=== PATIENT | female | born 1980 | race Caucasian/White ===

== ENCOUNTER → 2021-03-29 | Day surgery (SDC) | payer OTHER ==
[~2021-03-29] MED LIST: ABILIFY MYCITE5 MG PO; BACTRIM DS TAB1 EACH PO; BOTOX100 UNIT IM; COLACE100 MG PO; DEPO-PROVE150 MG/11 IM; FISH OIL 1,0001 EAC9 PO; HIGH POTENCY I134 MG PO; KEFLEX250 MG PO; LUNESTA2 MG PO; LYRICA100 MG PO; MELATONIN3 MG PO; MULTI VITAMIN1 EACH PO; NORCO5 PO; OXYBUTYNIN 5 MG5 M2 PO; PRILOSEC OTC20 MG PO; PRISTIQ100 MG PO; REQUIP 1 MG TABL1 M1 PO; SINGULAIR 10 MG10 MG PO; TOPROL XL50 MG PO; UBRELVY100 MG PO; VISTARIL50 MG PO; VITAMIN C250 MG PO; VITAMIN D350 MCG PO; ZANAFLEX2 M1 PO; [UNRECOGNIZED DRUG - OTHER] IM
[2021-03-29 06:53] LABS: HEMATOCRIT 41.3 % (37.0-47.0); MCH 30.3 pg (26.0-34.0); MCHC 33.9 g/dL (28.0-37.0); MCV 89.3 fL (80.0-100.0); MPV 7.2 fl. (7.2-11.1); RBC 4.62 mil/uL (4.20-5.00); RDW-CV 14.4 % (10.5-14.5); WBC 5.4 thou/uL (4.0-11.0)
[2021-03-29 07:03] LABS: CALCIUM 9.3 mg/dL (8.5-10.1); CREATININE 0.9 mg/dL (0.6-1.3)
--- NOTE | 2021-03-29 09:54 | EKG ---
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
--- NOTE | 2021-04-04 12:06 | PATH ---
[address] [address] PATHOLOGY RPT PROCEDURE Name: SENAIT CASPER Room: [facility].#: [id number] Admission: 03/29/21 Date of : 80 Discharge: Report #: [id number] Path Case #: [id number] [facility] Accession Number: [id number] . 01 Material submitted: . elbow - LEFT ELBOW MASS. Modifiers: left . 02 Diagnosis: Left elbow mass: - Benign skin and dense fibrous connective tissue with fibrosis, dystrophic calcification and attached benign bone. ([place]:[facility]; 03/31/2021) [facility] 03/31/2021 1142 Local . 02 Electronically signed: . Last Mai MD, Pathologist NPI- [id number] . 01 Gross description: . The specimen is received in formalin, labeled "Senait Casper, left elbow mass". Received are multiple segments of white-simms tissue with attached possible skin measuring 3.2 x 1.0 x 0.3 cm in aggregate dimensions. The specimen is submitted entirely in cassette A1. ([facility]; 03/30/2021) QAC/QAC 03/30/2021 0915 Local . 02 Pathologist provided ICD-10: M79.89 . 02 CPT . 394931 Specimen Comment: A courtesy copy of this report has been sent to [phone], [phone] Specimen Comment: [phone] Specimen Comment: Report sent to / DR EL Specimen Comment: A duplicate report has been generated due to demographic updates. Performed at: 01 [facility] [address], [place], [place] [id number] MD Vinay Nair MD Phone: [phone] Performed at: 02 [facility] [address], [place], [place] [id number] MD Last Mai MD Phone: [phone]
--- NOTE | 2021-04-04 12:21 | OP ---
[address] [address] OPERATIVE REPORT Name: JENN VELEZ Room: [facility]#: [id number] Admission: 03/29/21 Attend Phys: Haris Vicente II Discharge: Date of : 80 Report #: [id number] THIS REPORT FOR: cc: Cass Cagle MD, Regina MD Greiner,Haris Mcdonald II DO ~ DATE OF SURGERY: 03/29/2021 PREOPERATIVE DIAGNOSIS: Left elbow mass down to bone. POSTOPERATIVE DIAGNOSIS: Left elbow mass down to bone. PROCEDURE: Incision left elbow mass down to bone approximately 1.5 cm. SURGEON: Haris Vicente II, DO RECRUITMENT ASSISTANT: VICTOR HUGO Randle. ANESTHESIA: LMA. ESTIMATED BLOOD LOSS: Minimal. ANTIBIOTICS: Ancef preoperatively. DRAINS: None. COMPLICATIONS: None. CONDITION: The patient stable to recovery room. SPECIMEN: To pathology. DESCRIPTION OF PROCEDURE: The patient was taken to the operative suite, placed supine on the operating table, given appropriate anesthesia. The patient had a well-padded tourniquet applied to the affected arm, which was inflated to 250 mmHg after Esmarch exsanguination for duration of procedure. The left arm was sterilely prepped and draped. Incision was then made in a longitudinal fashion over the olecranon, was carried down to subcutaneous tissues. A subcuticular fibrous connective tissue was resected as well as the skin ____ area and morselized bone spur that was taken off the olecranon down to the olecranon and all the bone. It was then smoothed utilizing a rasp. Irrigation then performed of the wound. The subcutaneous layer was then closed with a 2-0 Vicryl and skin was closed with running Monocryl stitch. Dermabond [place] [address] OPERATIVE REPORT Name: JENN VELEZ Room: [facility]#: [id number] Admission: 03/29/21 Attend Phys: Haris Vicente II Discharge: Date of : 80 Report #: [id number] splint were applied. Pain cocktail was injected for local anesthesia. The patient transported to recovery in stable condition. Counts were correct x 2. <ELECTRONICALLY SIGNED> By: Haris Vicente II, DO 04/04/21 1221 2112 [id number] Vicente II, DO /nt
== END | disposition home or self-care (01) ==
LOC: M.SUR 06:10
PROVIDERS: Anesthesiology; ATTEND Orthopaedic Surgery
DX: M79.89 Other specified soft tissue disorders (principal); M25.722 Osteophyte, left elbow; Z79.899 Other long term (current) drug therapy; Z88.8 Allergy status to other drugs, medicaments and biological substances

== ENCOUNTER 2021-04-01 16:54 | Emergency (ER) | payer OTHER ==
[~2021-04-01] VITALS: Ht 149.9 cm; Wt 54.4 kg
[~2021-04-01 16:54] MED LIST changes: -BACTRIM DS TAB1 EACH PO; -KEFLEX250 MG PO
[2021-04-01] MEDS ORDERED: BACTRIM DS TAB1 EACH PO (20:10)
[2021-04-01] MEDS ORDERED: KEFLEX250 MG PO (20:10)
[2021-04-01 20:20] VITALS: BP 120/82
== END 2021-04-01 20:20 | disposition home or self-care (01) ==
LOC: M.ERS 16:54
DX: L03.114 Cellulitis of left upper limb (principal); G43.909 Migraine, unspecified, not intractable, without status migrainosus; F41.9 Anxiety disorder, unspecified; F32.9 Major depressive disorder, single episode, unspecified; K21.9 Gastro-esophageal reflux disease without esophagitis; M79.7 Fibromyalgia; Z79.899 Other long term (current) drug therapy; Z91.048 Other nonmedicinal substance allergy status; Z98.890 Other specified postprocedural states; Z88.5 Allergy status to narcotic agent; Z88.8 Allergy status to other drugs, medicaments and biological substances